=== PATIENT | female | born 2000 | race African-American/Black ===

== ENCOUNTER → 2020-03-05 | Outpatient (CLI) | payer OTHER | LOC: COL.RAD 11:55 | DX: G43.009 Migraine without aura, not intractable, without status migrainosus (principal); R53.1 Weakness ==

== ENCOUNTER → 2021-01-03 | Outpatient (CLI) | payer OTHER | LOC: COL.RAD 07:43 | DX: R11.2 Nausea with vomiting, unspecified (principal); R10.32 Left lower quadrant pain | CPT/HCPCS: A9541 ==